=== PATIENT | female | born 1960 | race Caucasian/White ===

== ENCOUNTER 2019-03-31 17:56 | Inpatient (IN) | payer OTHER ==
[~2019-03-31] VITALS: Ht 162.6 cm; Wt 103.0 kg
--- NOTE | 2019-03-31 18:07 | NUR ---
DIARRHEA STARTED 2 WEEKS AGO BUT ABD PAIN STARTED LAST NIGHT. TODAY GEN ID LOWER QUADS 7/10 WITH DIARRHEA TODAY. ABD SOFT AND TENDER TO PALP WITHOUT PALP MASSES PRESENT. PT APPEARS PALE FOR ETHNICITY AND SKIN IS WARM AND DRY. PT CLAIMS GEN WEAKNESS STARTED SATURDAY. SENT HERE FROM [facility] FOR LOW BP. UPON ARRIVAL TRIAGE BP 81/40. PT CLAIMS SHE DID NOT TAKE HER BP MEDS TODAY. CONNECTED TO AUTOMATION TESTER AND AWAITING MD CARPENTER. DENIES ANY SYCOPAL EPISODE
--- NOTE | 2019-03-31 18:14 | NUR ---
UPON ASSESSMENT PT'S HAS JAUNDICE OF HER EYES
--- NOTE | 2019-03-31 18:14 | NUR ---
LAB AT BEDSIDE
[2019-03-31 18:42] LABS: BASOPHIL % 0.2 % (0-2)
[2019-03-31 18:44] LABS: PLATELET COUNT 124 x10^3mcL (130-400); RED CELL DISTRIBUTION WIDTH 15.2 % (11.5-14.5)
[2019-03-31 18:45] LABS: ALKALINE PHOSPHATASE 79 U/L (46-116); ALT/SGPT 42 U/L (14-59); AST/SGOT 156 U/L (15-37); BILIRUBIN TOTAL 5.2 mg/dL (0.20-1.00); CALCIUM 7.3 mg/dL (8.5-10.1); CARBON DIOXIDE 16.9 mmol/L (21-32); CHLORIDE SERUM 106 mmol/L (98-107); CREATININE SERUM 3.4 mg/dL (0.6-1.0); GFR1 15 mL/min; GLUCOSE SERUM 133 mg/dL (74-106); LIPASE 142 IU/L (73-393); SODIUM SERUM 136 mmol/L (136-145)
[2019-03-31 18:55] LABS: ALBUMIN 1.9 g/dL (3.4-5.0); POTASSIUM SERUM 5.9 mmol/L (3.5-5.1); TOTAL PROTEIN, SERUM 5.4 g/dL (6.4-8.2)
--- NOTE | 2019-03-31 18:55 | NUR ---
PT UNABLE TO GIVE ENOUGH URINE FOR URINE SEND. DR GODINEZ AWARE
--- NOTE | 2019-03-31 19:05 | NUR ---
BP 76/32. LEVOPHED STARTED PER PRROTOCOL AND DR GODINEZ ORDERS
--- NOTE | 2019-03-31 19:08 | NUR ---
LEVOPHED INCREASED TO 4MG/MIN FOR BP 79/37
--- NOTE | 2019-03-31 19:17 | NUR ---
LEVOPHED INCREASED TO 6MCG/,IN FOR BP 88/47
--- NOTE | 2019-03-31 19:48 | NUR ---
84/41 LEVO INCREASED FROM 9MCG TO 11MCG
--- NOTE | 2019-03-31 19:58 | NUR ---
98/39 LEVO INCREASED FROM 11MCG TO 13MCG
--- NOTE | 2019-03-31 20:19 | NUR ---
PT HAS MEDICATION RUNNING PER EMAR ORDERS. PT IS LAYING IN [place] POSITION AT THIS TIME. PT DENIES ANY PAIN. PT IS A/O X4. PT RESPS ARE E/U. NO ACD NOTED
--- NOTE | 2019-03-31 20:53 | NUR ---
PT TAKEN TO CT VIA ZULY POWELL BY TECH
--- NOTE | 2019-03-31 21:19 | NUR ---
PT BP HAS DROPPED TO 89/41 WILL INCREASE LEVO TO 15MCG/MIN
--- NOTE | 2019-03-31 21:29 | NUR ---
CRITICAL FINDING OF CT OF ABDOMEN. DR GODINEZ MADE AWARE
--- NOTE | 2019-03-31 21:57 | NUR ---
INCREASED THE LEVO TO 20MCG/MIN DUE TO BP BEING 103/35
--- NOTE | 2019-03-31 22:14 | NUR ---
95/31 INCREASED LEVO TO 22MCG/MIN
--- NOTE | 2019-03-31 22:40 | NUR ---
PT HAS MEDICATION RUNNING PER EMAR ORDERS. PT IS ANSWERING QUESTIONS APPROPRIATELY IN 5-8 WORDED SENTENCES. PT IS A/O X4. PT RESPS ARE E/U. PT HAS SPOUSE AT BEDSIDE. NO ACD NOTED
[2019-03-31 22:41] LABS: MAGNESIUM 1.7 mg/dL (1.8-2.4)
[2019-03-31 22:45] LABS: CHOLESTEROL/HDL RATIO 8.2
--- NOTE | 2019-03-31 22:50 | NUR ---
RECEIVED REPORT FROM REY ARIZA FROM ED. ALL QUESTIONS AND CONCERNS ADDRESSED.
--- NOTE | 2019-03-31 22:51 | NUR ---
PT REPORT GIVEN TO JACKIE IN ICU TO ASSUME PRIMARY CARE OF PT
--- NOTE | 2019-03-31 23:05 | NUR ---
PER DR. FAUST, ORDER 1 UNIT OF FFP.
--- NOTE | 2019-03-31 23:10 | NUR ---
PT WHEELED TO ICU BED 5 VIA ED ANDRE. PT ESCORTED BY SOFIA LE AND GRAY EMT. NO INCIDENCE NOTED
--- NOTE | 2019-03-31 23:13 | NUR ---
PT ARRIVED TO UNIT AT THIS TIME FROM ED. PT PLACED IN ICU 5. SOON PT ARRIVED PT WAS ABLE STAND AND PIVOT TO BEDSIDE COMMODE WITH MINIMAL ASSIST AND WAS ABLE TO URINATE WITHOUT COMPLICATIONS. PT THEN STOOD AND PIVOT TO HOSP WITH WITHOUT INCIDENT AND PLACED ON FULL DRYWALL APPLICATOR. PT IS A/O X4, SPEECH IS CLEAR AND FOLLOWS COMMANDS. EYES OPEN SPONTANEOULSY AND PUPILS REACT BRISK TO LIGHT. CHEST RISE AND FALL EQUAL AND UNLABORED. DENIES CHEST PAIN AND SOB AT THIS TIME. PT C/O LOWER ABD PAIN, 4/10 PRESSURE PAIN AT THIS TIME. PT HAS IV'S - 20, LT AC, PATENT AND FLUSHING WELL AND 22G TO RT HAND - INFILTRATED AND REMOVE. 20G IV STARTED IN RT AC, PATENT AND FLUSHING WELL. PT IS ON LEVOPHED 22MCG/MIN, VS STABLE AT THIS TIME. PT HAS NO COMPLAINTS OR SIGNS OR ACUTE DISTRESS AT THIS TIME. BED LEFT IN THE LOWEST POSITION AND CALL LIGHT LEFT WITH REACH.
--- NOTE | 2019-03-31 23:36 | NUR ---
TITRATED LEVOPHED FROM 22 MCG/MIN TO 20 MCG/MIN FOR BP OF 122/63 (96).
--- NOTE | 2019-03-31 23:51 | NUR ---
TITRATED LEVOPHED FROM 20 MCG/MIN TO 18 MCG/MIN FOR BP OF 117/65 (70).
--- NOTE | 2019-03-31 23:56 | NUR ---
RECEIVED REPORT FROM REY ARIZA FROM ED. ALL QUESTIONS AND CONCERNS ADDRESSED.
[2019-04-01] VITALS (8 sets, daily range): BP systolic 86–115; BP diastolic 47–86; Ht 162.6 cm; Wt 103.0 kg
--- NOTE | 2019-04-01 00:15 | NUR ---
TITRATED LEVOPHED FROM 18 MCG/MIN TO 16 MCG/MIN FOR BP WITHIN NORMAL LIMITS.
--- NOTE | 2019-04-01 00:25 | NUR ---
DR. FAUST CALLED, AND WOULD LIKE TO ORDER D5 1/2 NS TO INFUSE PATIENTS MAINTENANCE FLUIDS, AND DC NS. ALSO STATED THAT IF PT'S BP IS NOT STABLE, THEN PROVIDE WITH SECOND BAG OF FFP.
--- NOTE | 2019-04-01 01:01 | NUR ---
PT'S BLOOD TESTED BODIES FOR ANTIBODIES, THEREFORE PATIENT CANNOT RECEIVE FFP. WILL LET DOCTOR KNOW.
--- NOTE | 2019-04-01 01:26 | NUR ---
NEOSYNPHRINE START AT THIS AT 50MCG/MIN, BP 95/48 AND MAP 70
--- NOTE | 2019-04-01 01:49 | NUR ---
DR. TREJO AND INTERNS AT BEDSIDE FOR CENTRAL LINE PLACEMENT. TIME OUT AND CONSENT FORM SIGNED AND PLACED IN CHART.
--- NOTE | 2019-04-01 01:51 | NUR ---
TIME OUT TAKEN AT 0150 FOR CENTRAL LINE INSERTION, RT VS LT IJ. DR TREJO AT BEDSIDE WITH 3 OTHER RESIDENT FOR PROCEDURE.
--- NOTE | 2019-04-01 02:28 | NUR ---
SEPTIC TANK SETTER AT BEDSIDE TO ASSIST WITH CENTRAL LINE PLACEMENT.
--- NOTE | 2019-04-01 02:30 | NUR ---
ATTEMPTED TO CALL DR. FAUST, CALL DIDNT GO THROUGH, WILL TRY AGAIN.
--- NOTE | 2019-04-01 02:53 | NUR ---
CENTRAL LINE INSERTION PROCEDURE FINISHED AT THIS TIME, XRAY NOTIFIED FOR CXR FOR CONFIRMATION OF PLACEMENT
--- NOTE | 2019-04-01 03:01 | NUR ---
XRAY AT BEDSIDE FOR CXR FOR CENTRAL LINE PLACEMENT CONFIRMATION.
[2019-04-01 03:19] LABS: BASOPHIL % 1.1 % (0-2); PLATELET COUNT 152 x10^3mcL (130-400)
[2019-04-01 03:20] LABS: RED CELL DISTRIBUTION WIDTH 15.5 % (11.5-14.5)
[2019-04-01 03:57] LABS: CALCIUM 7.3 mg/dL (8.5-10.1); CARBON DIOXIDE 18.7 mmol/L (21-32); MAGNESIUM 1.6 mg/dL (1.8-2.4); PHOSPHOROUS 2.5 mg/dL (2.5-4.9); POTASSIUM SERUM 4.9 mmol/L (3.5-5.1)
--- NOTE | 2019-04-01 04:21 | NUR ---
LEVOPHED TITRATED DOWN FROM 16MCG/MIN TO 14MCG/MIN, BP 123/86.
--- NOTE | 2019-04-01 05:27 | NUR ---
NEOSYNPHRINE TITRATED UP FROM 50MCG/MIN TO 75MCG/MIN, BP 86/33
--- NOTE | 2019-04-01 05:42 | NUR ---
RESIDENT AT BEDSIDE, UPDATE GIVEN.
--- NOTE | 2019-04-01 05:48 | NUR ---
BP 86/63, LEVOPHED TITRATED UP FROM 14MCG/MIN TO 16MCG/MIN AND NEOSYNPHRINE TITRATED UP FROM 75MCG/MIN TO 100MCG/MIN
--- NOTE | 2019-04-01 05:57 | NUR ---
DR. FAUST CALLED, DOCTOR ORDERED ALBUMIN 25%, 100 ML NOW. WILL CARRY OUT ORDER. MADE AWARE OF NOT BEING ABLE TO PROVIDE FFP.
--- NOTE | 2019-04-01 06:18 | NUR ---
DR. FAUST CALLED TO ORDER ONE UNIT OF PRBC. CALLED LAB TO SEE IF IT WERE POSSIBLE TO GIVE BLOOD, AND NURSING AIDE STATED THAT THE BLOOD WAS SENT OUT FOR TYPE AND SCREEN DUE TO THE PRESENCE OF ANTIBODIES. WILL MAKE DOCTOR FAUST AWARE.
--- NOTE | 2019-04-01 07:49 | NUR ---
BP 115/54 (75). LEVOPHED TITRATED FROM 16 MCG/MINT TO 14 MCG/MIN
[2019-04-01 07:51] LABS: BILIRUBIN DIRECT 3.12 mg/dL (0.0-0.2); BILIRUBIN TOTAL 5.3 mg/dL (0.20-1.00)
[2019-04-01 07:52] LABS: TOTAL PROTEIN, SERUM 5.7 g/dL (6.4-8.2)
--- NOTE | 2019-04-01 08:38 | NUR ---
103/47 (70). LEVOPHED TITRATED FROM 14 MCG/MIN TO 12 MCG/MIN
--- NOTE | 2019-04-01 09:00 | NUR ---
WHITE WASHER PILER EMRE AT BEDSIDE FOR ECHO
--- NOTE | 2019-04-01 09:15 | NUR ---
RIGHT AC PIV REMOVED DT LEAK AND DISCOMFORT. IVF MOVED TO RIJ BROWN LUMEN.
--- NOTE | 2019-04-01 09:20 | NUR ---
BP 114/57 (78). LEVOPHED TITRATED FROM 12 MCG/MIN TO 10 MCG/MIN
--- NOTE | 2019-04-01 09:49 | NUR ---
NIBP 84/35 MAP 58, NEOSYN TITRATED TO 100 MCG/MIN. PRIMARY RN MADE AWARE.
--- NOTE | 2019-04-01 10:09 | NUR ---
US TECH AT BEDSIDE FOR ABDOMINAL US
--- NOTE | 2019-04-01 10:30 | NUR ---
DR. CAGE, RESIDENTS, SCHOOL BUS AIDE AND PRIMARY RN AT BEDSIDE TO SEE AND ASSESS PT. PT AND PT'S AT BEDSIDE. UPDATES PROVIDED BY PHYSICIANS. WILL CONT TO MONITOR.
--- NOTE | 2019-04-01 10:30 | NUR ---
DR. CAGE ROUNDED ON THE PT, AND THE PT AND HER AT BEDSIDE WERE UPDATED ON THE PLAN OF CARE. DISCUSSED POSSIBLE TRANSFER TO HIGHER LEVEL OF CARE.
--- NOTE | 2019-04-01 10:32 | NUR ---
BP 100/59 (74). LEVOPHED TITRATED FROM 10 MCG/MIN TO 8 MCG/MIN
[2019-04-01 11:00] LABS: BASOPHIL % 0.6 % (0-2); CALCIUM 7.5 mg/dL (8.5-10.1); CARBON DIOXIDE 21.2 mmol/L (21-32); CREATININE SERUM 2.6 mg/dL (0.6-1.0); PLATELET COUNT 134 x10^3mcL (130-400); POTASSIUM SERUM 4.2 mmol/L (3.5-5.1)
--- NOTE | 2019-04-01 11:05 | NUR ---
SPOKE WITH DR. RODGERS. INFORMED OF TYPE/SCREEN RESULTS, HGB LEVELS, AND ASKED REGARDING WHETHER FFP SHOULD BE HUNG NOW. STATES TO HANG FFP.
[2019-04-01 11:07] LABS: RED CELL DISTRIBUTION WIDTH 15.3 % (11.5-14.5)
--- NOTE | 2019-04-01 11:23 | NUR ---
BP 89/47 (60). LEVOPHED TITRATED FROM 8 MCG/MIN TO 10 MCG/MIN
--- NOTE | 2019-04-01 11:31 | NUR ---
ABDOMINAL US COMPLETED
[2019-04-01 12:28] LABS: UA SPECIFIC GRAVITY <=1.005 (1.005-1.035); microscopic required? YES; urine erythrocyte 3+ (NEGATIVE)
[2019-04-01 12:32] LABS: AMPHETAMINE QUAL UR NONE DETECTED (See below)
--- NOTE | 2019-04-01 12:51 | NUR ---
DR. LUO AT BEDSIDE TO ASSESS PT. UPDATED ON LABS AND RECENT VS. PER DR. ULO ATTEMPTED TO KEEP PRESSORS LOW POSSIBLE. DIC PANEL TO BE ORDERED AND CONFIRMED. ALSO ASKS THAT 2 UNITS PRBC BE GIVEN AND TO KEEP 2 UNITS PRBC ON BOARD FOR POSSIBLE SURGERY
--- NOTE | 2019-04-01 12:55 | NUR ---
PER OG, DIRECTOR OF RESTAURANTS, [facility] WILL NOT ACCEPT PT PATIENT IS ON 2 VASOPRESSORS AT THIS TIME AND IS CONSIDERED TOO UNSTABLE FOR TRANSFER
--- NOTE | 2019-04-01 12:57 | NUR ---
TANYA STEAM TENDER ON UNIT. UPDATED ON PT'S STATUS. INFORMED THAT WE WILL NOTIFY WHEN BLOOD TRANSFUSION IS AVAILABLE. INFORMED OF PT NOT TRANSFERRING TO [place] AT THIS TIME. VERBALIZES UNDERSTANDING
--- NOTE | 2019-04-01 13:01 | NUR ---
BP 85/41 (59). NEOSYNEPHRINE TITRATED FROM 125 MCG/MIN TO 200 MCG/MIN
--- NOTE | 2019-04-01 13:17 | NUR ---
DR. HUERTA'S NUMBER GIVEN TO LAB TO DISCUSS BLOOD TRANSFUSION AND ANTIBODIES.
--- NOTE | 2019-04-01 13:19 | NUR ---
SPOKE WITH DR. FAUST. ASKS TO BE NOTIFIED WHEN BLOOD IS AVAILABLE FOR PT.
--- NOTE | 2019-04-01 13:20 | NUR ---
1 UNIT FFP VERIFIED AT BEDSIDE WITH SECOND RN. PRE ADMINISTRATION VS: TEMP 98.0, PULSE 107, BP 85/41, RR 22, SPO2 94%. WILL REASSESS IN 15 MINUTES FOR ANY ADVERSE REACTIONS.
--- NOTE | 2019-04-01 13:35 | NUR ---
15 MINUTE REASSESSMENT OF FFP TRANSFUSION VS: TEMP 97.8, HR 104, BP 95/67, SPO2 94%. NO ADVERSE REACTION OR DISTRESS NOTED AT THIS TIME. PATIENT TOLERATING WELL. WILL CONTINUE TO MONITOR.
--- NOTE | 2019-04-01 13:38 | NUR ---
CASE MANAGEMENT: PER OG [place] AUTHORIZED PT'S STAY FOR TODAY. HOWEVER THEY WOULD LIKE TO BE GIVEN UPDATES DAILY AND WILL HAVE PT TRANSFERRED TO [place] SOON SHE IS STABLE. [place] CONTACT PHONE NUMBER DOCUMENTED IN CASE MANAGEMENT NOTES FOR NURSING STAFF TO CALL IF CASE MANAGEMENT IS CLOSED.
--- NOTE | 2019-04-01 13:44 | NUR ---
CUSTOMER SUPPORT MANAGER'S ON UNIT. QUESTIONS REGARDING IF TWO UNITS PRBC TO BE INFUSED PRIOR TO SURGERY. INFORMED THAT WE WILL CALL DR. RODGERS AND CLARIFY ORDER.
--- NOTE | 2019-04-01 13:46 | NUR ---
SPOKE WITH DR. RODGERS TO CLARIFY IF THE TWO UNITS OF PRBC ARE REQUIRED TO BE TRANSFUSED PRIOR TO SURGERY. PER DR. RODGERS TWO UNITS OF PRBC ARE NOT REQUIRED TO BE TRANSFUSED PRIOR TO SURGERY LONG THEY ARE AVAILABLE FOR THE SURGERY. PRIMARY RN AWARE AND WILL NOTIFY SURGERY TEAM WELL.
--- NOTE | 2019-04-01 13:50 | NUR ---
TANYA MINERAL ORE PROCESSING LABOURER, INFORMED OF PT AVAILABLE FOR SURGERY WHEN BLOOD PRODUCTS ARE AVAILABLE.
--- NOTE | 2019-04-01 13:55 | NUR ---
NOREPI TITRATED TO 14 MCG/MIN, MAP 59
--- NOTE | 2019-04-01 14:18 | NUR ---
BP 120/53 (73). LEVOPHED TITRATED FROM 14 MCG/MIN TO 12 MCG/MIN
--- NOTE | 2019-04-01 14:30 | NUR ---
SPOKE WITH ALYCE ACCOUNTS RECEIVABLE SPECIALIST. STATES PER DR. LLOYD TITRATED NEOSYNEPHRINE OFF. ALSO TO INFUSE ONE UNIT FFP A BOLUS AND THEN HAVE CBC CMP PT/PTT DRAWN AFTER
--- NOTE | 2019-04-01 14:36 | NUR ---
109/44(74). NEOSYNEPHRINE TITRATED FROM 150 MCG/MIN TO 100 MCG/MIN. LEVOPHED @ 14 MCG/MIN.
--- NOTE | 2019-04-01 14:48 | NUR ---
BP 107/49 (67) LEVOPHED TITRATED FROM 14 MCG/MIN TO 16 MCG/MIN AND NEOSYNEPHRINE TITRATED FROM 100 MCG/MIN TO 25 MCG/MIN
--- NOTE | 2019-04-01 14:55 | NUR ---
FFP FIRST UNIT FINISHED AT THIS TIME. TEMP 98.1, PULSE 113, BP 107/48. RR 21 AMD 94% SPO2. NO S/SX OF ADVERSE REACTION
--- NOTE | 2019-04-01 14:55 | NUR ---
PER DR. LLOYD. CBC/BMP NOW. COAGULATION PANELS WILL BE DRAWN IN THE OPERATIVE ROOM. MAMADOU CLINIC DIRECTOR, MADE AWARE
--- NOTE | 2019-04-01 15:02 | NUR ---
86/39 (57) LEVOPHED TITRATED FROM 16 MCG/MIN TO 18 MCG/MIN
[2019-04-01 15:14] LABS: BASOPHIL % 0.1 % (0-2)
--- NOTE | 2019-04-01 15:15 | NUR ---
OBTAINED SIGNED CONSENT FOR EXP-LAP FROM PT WHO IS A/O X4 AT THIS TIME. OFFERED IF SHE FELT COMFORTABLE SIGNING NOW OR IF SHE HAD ANY FURTHER QUESTIONS FOR THE SURGEON PRIOR TO SIGNING CONSENT. PT STATED SHE HAD NO FURTHER QUESTIONS AT THIS TIME. SIGNED CONSENT WITNESSED BY MYSELF AND PLACED IN CHART.
[2019-04-01 15:16] LABS: PLATELET COUNT 128 x10^3mcL (130-400); RED CELL DISTRIBUTION WIDTH 15.4 % (11.5-14.5)
--- NOTE | 2019-04-01 15:16 | NUR ---
DR. VASQUES AT BEDSIDE SPEAKING WITH PT. UPDATED ON PT'S STATUS AND CONDITION. PER DR. VASQUES CHANGE LACTATED RINGER 250 ML/HR TO NS 150 ML/HR. INFORMED OF CRITICAL HGB 5.5 AND HCT 15.4
--- NOTE | 2019-04-01 15:17 | NUR ---
[place] SUPERINTENDENT OF SCHOOLS, MADE AWARE OF HGB 5.5 AND HCT 15.4. STATES SHE WILL INFORM DR. LLOYD
[2019-04-01 15:22] LABS: CALCIUM 7.4 mg/dL (8.5-10.1); CARBON DIOXIDE 18.7 mmol/L (21-32); CREATININE SERUM 2.2 mg/dL (0.6-1.0); POTASSIUM SERUM 4.1 mmol/L (3.5-5.1)
[2019-04-01 15:30] LABS: rbc morphology (normal/abnorm) ABNORMAL (NORMAL)
--- NOTE | 2019-04-01 15:32 | NUR ---
SPOKE WITH DR. LLOYD REGARDING PRBC UNIT BEING AVAILABLE. PER DR. LLOYD BOLUS PRBC PRIOR TO FFP ADMINISTRATION. FFP WILL BE 20 MINUTES UNTIL READY.
--- NOTE | 2019-04-01 15:35 | NUR ---
SPOKE WITH DR. HUERTA REGARDING BLOOD ADMINISTRATION. STATES PT DOES NOT NEED A STEROID PRIOR TO BLOOD ADMINISTRATION.
--- NOTE | 2019-04-01 15:45 | NUR ---
TITRATED NEOSYNEPHRINE DOWN TO 25 MCG/MIN FROM 50 MCG/MIN. BP 101/52 (71).
--- NOTE | 2019-04-01 15:50 | NUR ---
PT CLEANED WITH CHG WIPES PRIOR TO SURGERY.
--- NOTE | 2019-04-01 15:59 | NUR ---
1 UNIT OF PRBC'S VERIFIED AT BEDSIDE WITH SECOND RN. PRE-ADMINISTRATION VS: T 99.1, HR 107, BP 101/52, RR 25, SPO2 92%. WILL REASSESS IN 15 MIN FOR S/S OF ADVERSE REACTION.
--- NOTE | 2019-04-01 16:12 | NUR ---
15 MINUTE REASSESSMENT OF PRBC TRANSFUSION VS: T 99.0, HR 110, BP 95/40, RR 23, SPO2 93%. NO ADVERSE REACTION OR DISTRESS NOTED AT THIS TIME. PT TOLERATING TRANSFUSION WELL. WILL CONTINUE TO MONITOR
--- NOTE | 2019-04-01 16:26 | NUR ---
'S CELL PHONE NUMBER , CLAUS SHAFER.
--- NOTE | 2019-04-01 16:40 | NUR ---
BP 109/56 (74). NEOSYNEPHRINE TITRATED FROM 25 MCG/MIN TO OFF AT THIS TIME. LEVOPHED REMAINS @ 18 MCG/MIN
--- NOTE | 2019-04-01 16:45 | NUR ---
1 UNIT FFP INITIATED AT THIS TIME. PER DR. LLOYD BOLUS AT 1000 ML/HR. PRE VS: TEMP 98.3, HR 93, BP 109/56, RR 23, AND PO2 95% ON 2L NC.
--- NOTE | 2019-04-01 16:47 | NUR ---
BP 113/71 (82). LEVOPHED TITRATED FROM 18 MCG/MIN TO 16 MCG/MIN
--- NOTE | 2019-04-01 17:07 | NUR ---
PT TAKEN TO OR AT THIS TIME ACCOMPANIED BY RNS AND INTERNAL MEDICINE NURSE. ATTACHED TO EDUCATIONAL FUNDRAISING DIRECTOR. FFP BOLUS INFUSING, SENT WITH BLOOD TRANSFUSION SHEET. LEVOPHED PACKET AND 1700 ZOSYN SENT WITH PT. LEVOPHED @ 16 MCG/MIN. NS INFUSING @ 125 ML/HR, CALCIUM GLUCONATE INFUSING @ 120 ML/HR. PT'S AT BEDSIDE TO WALK WITH PT TO OR.
--- NOTE | 2019-04-01 18:15 | NUR ---
DR. NUNES ON UNIT. INFORMED THAT PATIENT IS IN OPERATING ROOM. UPDATES PROVIDED
--- NOTE | 2019-04-01 20:50 | NUR ---
PT ARRIVED FROM OR ACCOPMANIED BY DR. LLOYD, AND MACHINE PRESSER'S AND RECEVIED REPORT AT BEDSIDE, PER DR. LLOYD PT HAD A SPLENECTOMY AND 2L BLOOD LOSS, GIVEN FENTANYL AND VERSED IVP FOR SEDATION, 1500 ML OF CRYSTALLOID AND 500 OF COLLOID, -150 URINE OUTPUT, GIVEN 2 UNITS OF PRBC, 1 UNIT FFP AND 1 UNIT PLATELET. PT ATTACHED TO FULL PRESCHOOL DIRECTOR AND CONTINUOUS PULSE OXIMETRY AND ATTACHED TO VENT BY SHAVONNE HIGHTOWER. RECEIVED PT INTUBATED NOT SEDATED FROM OR, UNABLE TO FOLLOW SIMPLE COMMANDS, OR MAKE NEEDS KNOWN. PT DROWSY FROM SEDATION MEDICATIONS FROM OR, RSS=5. PUPILS 2MM SLUGGISH RESPONSE TO LIGHT B/L, PERRLA. GAG REFLEX PRESENT WHEN SUCTIONED. NO FACIAL DROOP. PT INTUBATED TO VENT, INTACT. RIJ, TLC, CDI, PORTS PATENT X3 AND INFUSING. RIGHT NARE NGT INTACT/PATENT, ATTACHED TO LOW INTERMITTENT SUCTION PER DR. FAUST. TRACHEA MIDLINE, NO DRAINAGE TO EENT. 7.5 ETT, 21 LL. ORAL CARE PROVIDED PER VAP PROTOCOL. VENT SETTINGS VCV-AC MODE, FIO2 100%, RATE 10, VT 500, PEEP 5. LUNG SOUNDS CLEAR TO BUL, DIMINISHED BASES. CHEST RISE/FALL SYMMETRIC, E/U BREATHING, NO ACUTE DISTRESS.S1/S2 SOUNDS, CHEST WALL STABLE, NO S/S OF CHEST PAIN. SKIN COLOR APPEARS SLIGHTLY JAUNDICED, CAP REFILL <3 SEC, PULSES WEAK TO BUE/BLE BUT PALPABLE, NO EDEMA. ARTERIAL LINE TO RIGHT RADIAL ARTERY, CDI. NEOSYNEPHRINE GTT INFUSING @ 30 MCG/MIN FROM OR, FOR BP SUPPORT. GEN WEAKNESS, NO CONTRACTURES/DEFORMITIES, PT ON TURN SCHED Q2H. SOFT WRIST RESTRAINTS TO BUE, SKIN/PULSE WNL FOR PT SAFETY. NO JOINT SWELLING OR TENDERNESS. PT NPO. RIGHT NARE NGT TO LOW INTERMITTENT SUCTION. NO S/S OF N/V.HYPOACTIVE BOWEL SOUNDS X4 QUADRANTS, ABD ROUND. NO BM NOTED. MID ABD INCISION S/P EXP LAP FROM OR WITH SUTURES/LIZZIE INTACT AND DRESSING CDI, ABD BINDER INTACT. ALESHA DRAIN TO LEFT ABD, DRESSING AND SITE WNL, DRAINING SANGOUNOUS RED BLOOD.F/C DRAINING TO GRAVITY INTACT, REY URINE. NO VAGINAL DISCHARGE OR EDEMA NOTED.SKIN WARM/DRY TO TOUCH. BED AT LOWEST SETTING, HOB ELEVATED 30 DEGREES, WILL CONT TO MONITOR.
--- NOTE | 2019-04-01 21:05 | NUR ---
DR. VILLASENOR AT BEDSIDE ASSESSING PT, UPDATES PROVIDED.
--- NOTE | 2019-04-01 21:06 | NUR ---
FENTANYL GTT INITIATED AT THIS TIME @ 1 MCG/KG/HR TO ACHEIVE RSS=4. PT RSS=1.
--- NOTE | 2019-04-01 21:07 | NUR ---
VERSED GTT INITATED AT THIS TIME @ 1 MG/HR TO ACHEIVE RSS=4. RSS=1 AT THIS TIME.
--- NOTE | 2019-04-01 21:20 | NUR ---
DR. TREJO MADE AWARE OF PTS H/H OF 5.2/14. PER DR. TREJO AND DR. VILLASENOR MADE AWARE, OK TO INFUSING PRBC.
--- NOTE | 2019-04-01 21:33 | NUR ---
NEOSYNEPHRINE GTT INITIATED @ 50 MCG/MIN, ARTERIAL LINE MAP=60.
[2019-04-01 21:35] LABS: PLATELET COUNT 141 x10^3mcL (130-400)
[2019-04-01 21:36] LABS: RED CELL DISTRIBUTION WIDTH 22.1 % (11.5-14.5)
--- NOTE | 2019-04-01 21:40 | NUR ---
FENTANYL GTT TITRATED TO 1.5 MCG/KG/HR AND VERSED TITRATED TO 2 MG/HR TO ACHIEVE RSS=4. RSS= 1.
[2019-04-01 21:44] LABS: CALCIUM 6.6 mg/dL (8.5-10.1); CARBON DIOXIDE 19.5 mmol/L (21-32); CHLORIDE SERUM 107 mmol/L (98-107); GFR1 27 mL/min; GLUCOSE SERUM 253 mg/dL (74-106); POTASSIUM SERUM 4.3 mmol/L (3.5-5.1); SODIUM SERUM 138 mmol/L (136-145)
[2019-04-01 21:49] LABS: ALKALINE PHOSPHATASE 47 U/L (46-116); ALT/SGPT 46 U/L (14-59); AST/SGOT 173 U/L (15-37); BAND NEUTROPHIL 7 % (0-10); MONOCYTE 3 % (0-7); PROMYELOCYTE 2 % (0-0); SEGMENTED NEUTROPHILS 68 % (37-75)
[2019-04-01 21:50] LABS: rbc morphology (normal/abnorm) ABNORMAL (NORMAL)
[2019-04-01 21:51] LABS: ALBUMIN 2.6 g/dL (3.4-5.0); PLATELET MORPHOLOGY PLATELETS DECREASED; TOTAL PROTEIN, SERUM 4.7 g/dL (6.4-8.2)
--- NOTE | 2019-04-01 21:57 | NUR ---
1 UNIT PRBC VERIFIED AT BEDSIDE WITH 2 RN'S. PRE VITAL SIGNS, TEMP 97.9, PULSE 136, ART BP 94/46, RESP 14, O2 100%.
--- NOTE | 2019-04-01 22:00 | NUR ---
NEOSYNEPRHINE GTT TITRATED TO 75 MCG/MIN, ARTERIAL LINE MAP=59.
--- NOTE | 2019-04-01 22:08 | NUR ---
VASOPRESSIN GTT INTITATED @ 0.01 UNITS/MIN, ARTERIAL LINE MAP=63.
--- NOTE | 2019-04-01 22:10 | NUR ---
VERSED GTT TITRATED TO 4 MG/HR, RSS=1.
--- NOTE | 2019-04-01 22:13 | NUR ---
15 MIN REASSESSMENT OF PRBC TRANSFUSION VS: TEMP 98.5, PULSE 134, ART BP 107.47, RESP 12, O2 100%. NO AVERSE REACTION NOTED TO PT.
--- NOTE | 2019-04-01 22:26 | NUR ---
DR FAUST CALLED BACK, CLARIFIED TPN ORDER TO START INFUSION AT 70ML/HR, CHANGE IVF D5 1/2 NS AT 10ML/HR WHEN TPN STARTS. DR FAUST MADE AWARE TPN WILL NOT BE AVAILABLE TILL TOMORROW NIGHT PER PHARMACIST. PHARMACIST CALLED AND MADE AWARE.
--- NOTE | 2019-04-01 22:30 | NUR ---
NEOSYNEPRHINE GTT TITRATED TO 100 MCG/MIN, ARTERIAL LINE MAP=62.
--- NOTE | 2019-04-01 22:47 | NUR ---
D5 1/2 NS AND NS D/C AT THIS TIME PER DR. TREJO AND ORDER
--- NOTE | 2019-04-01 23:00 | NUR ---
NEOSYNEPRHINE GTT TITRATED TO 125 MCG/MIN, ARTERIAL LINE MAP=63.
--- NOTE | 2019-04-01 23:15 | NUR ---
VASOPRESSIN GTT INTITATED @ 0.02 UNITS/MIN, ARTERIAL LINE MAP=60.
[2019-04-02] VITALS (16 sets, daily range): BP systolic 80–102; BP diastolic 47–61
--- NOTE | 2019-04-02 00:10 | NUR ---
UNIT OF PRBC FINISHED AT THIS TIME, TEMP 98.5, PULSE 127, ART BP 90/45, RESP 13, O2 100%. PT SHOWS NO S/S OF ANY ADVERSE BLOOD TRANFUSION REACTION.
--- NOTE | 2019-04-02 00:15 | NUR ---
DR. ARAIZA AT BEDSIDE FOR ASSESSMENT, UPDATES PROVIDED ABOUT PT. PER DR. ARAIZA, D/C FLAGYL AND ORDER PNEUMOVAXX VACCINE FOR AM PT HAD A SPLECTOMY, AND CONTINUE ZOSYN. PER DR. ARAIZA HE NEEDS MORE INFORMATION ABOUT PT AND WILL CONTACT . WILL INPUT ORDERS.
--- NOTE | 2019-04-02 00:20 | NUR ---
SPOKE WITH DR. VILLASENOR OF PT'S BLOOD INFUSION FINISHED AT THIS TIME. PER DR. VILLASENOR OK TO DRAW CBC/LACTIC ACID AT THIS TIME (WILL INFORM LAB), AND WILL WAIT ON RESULTS TO INFUSE NEXT BLOOD TRANSFUSION.
--- NOTE | 2019-04-02 00:30 | NUR ---
FENTANYL TITRATED TO 1 MCG/KG/HR, RSS=5.
--- NOTE | 2019-04-02 00:30 | NUR ---
LEVOPHED GTT TITRATED TO 28 MCG/MIN, ART LINE MAP=70.
--- NOTE | 2019-04-02 00:40 | NUR ---
LEVOPHED GTT TITRATED TO 26 MCG/MIN, ART LINE MAP=66.
[2019-04-02 00:44] LABS: BASOPHIL % 0.1 % (0-2)
--- NOTE | 2019-04-02 00:45 | NUR ---
VERSED TITRATED TO 2 MG/HR, RSS=5.
--- NOTE | 2019-04-02 00:45 | NUR ---
NEOSYNEPRHINE GTT TITRATED TO 150 MCG/MIN, ARTERIAL LINE MAP=62
[2019-04-02 01:09] LABS: PLATELET COUNT 122 x10^3mcL (130-400)
--- NOTE | 2019-04-02 01:10 | NUR ---
CRITICAL LAB VALUE H/H 6.6/19, AND LACTIC OF 5.0 DR. VILLASENOR MADE AWARE VIA TELEPHONE. PER DR. VILLASENOR SHE WILL ORDER ANOTHER UNIT OF PRBC.
[2019-04-02 01:11] LABS: rbc morphology (normal/abnorm) ABNORMAL (NORMAL)
--- NOTE | 2019-04-02 01:30 | NUR ---
NEOSYNEPRHINE GTT TITRATED TO 175 MCG/MIN, ARTERIAL LINE MAP=63
[2019-04-02 02:24] LABS: rbc morphology (normal/abnorm) ABNORMAL (NORMAL)
--- NOTE | 2019-04-02 02:55 | NUR ---
1 UNIT OF PRBC VERIFIED AT BEDSIDE WITH 2 RN'S. PRE VITAL SIGNS, TEMP 99.0, PULSE 125, ART BP 97/57, RESP 12, O2 100%.
--- NOTE | 2019-04-02 03:10 | NUR ---
15 MIN REASSESSMENT OF PRBC TRANSFUSION VS: TEMP 99.2, PULSE 125, ART BP 95/52, RESP 12, O2 100%. NO AVERSE REACTION NOTED TO PT, TITRATED BLOOD TRANSFUSION PER HOSPITAL PROTOCOL
--- NOTE | 2019-04-02 03:15 | NUR ---
LEVOPHED TITRATED TO 24 MCG/MIN, ART MAP=71.
--- NOTE | 2019-04-02 03:30 | NUR ---
LEVOPHED TITRATED TO 22 MCG/MIN, ART LINE MAP=71.
--- NOTE | 2019-04-02 03:37 | NUR ---
SPOKE WITH DR. FAUST ON PT'S STATUS, VASOPRESSORS, VITAL SIGNS, AND LAB VALUES. NO NEW ORDERS AT THIS TIME.
--- NOTE | 2019-04-02 03:45 | NUR ---
LEVOPHED TITRATED TO 20 MCG/MIN, ART LINE MAP=71.
--- NOTE | 2019-04-02 04:00 | NUR ---
LEVOPHED TITRATED TO 18 MCG/MIN, ART LINE MAP=70.
--- NOTE | 2019-04-02 04:15 | NUR ---
LEVOPHED TITRATED TO 16 MCG/MIN, ART LINE MAP=70.
--- NOTE | 2019-04-02 04:30 | NUR ---
LEVOPHED TITRATED TO 14 MCG/MIN, ART LINE MAP=69.
--- NOTE | 2019-04-02 04:35 | NUR ---
NEOSYNEPRHINE GTT TITRATED TO 150 MCG/MIN, ARTERIAL LINE MAP=71
--- NOTE | 2019-04-02 04:45 | NUR ---
LEVOPHED TITRATED TO 12 MCG/MIN, ART LINE MAP=70.
--- NOTE | 2019-04-02 05:00 | NUR ---
LEVOPHED TITRATED TO 10 MCG/MIN, ART LINE MAP=69.
--- NOTE | 2019-04-02 05:06 | NUR ---
DR. VILLASENOR AT BEDSIDE TO ASSESS PT, UPDATES PROVIDED. INFORMED HER OF PTS RIGHT NGT DRAINING BROWN LIQUID. NO NEW ORDERS AT THIS TIME.
--- NOTE | 2019-04-02 05:20 | NUR ---
UNIT OF PRBC FINISHED AT THIS TIME, TEMP 98.8, PULSE 114, ART BP 86/54, RESP 12, O2 100%. PT SHOWS NO S/S OF ANY ADVERSE BLOOD TRANFUSION REACTION.
--- NOTE | 2019-04-02 05:21 | NUR ---
DR. VILLASENOR MADE AWARE OF PT'S BLOOD TRANSFUSION FINISHED. INFORMED HER OF NO CBC ORDERED FOR AM LAB, PER DR. VILLASENOR SHE WILL ORDER A CBC.
--- NOTE | 2019-04-02 06:00 | NUR ---
LEVOPHED TITRATED TO 8 MCG/MIN, ART LINE MAP=71.
[2019-04-02 06:02] LABS: BASOPHIL % 0 % (0-2); PLATELET COUNT 118 x10^3mcL (130-400); RED CELL DISTRIBUTION WIDTH 18.6 % (11.5-14.5)
--- NOTE | 2019-04-02 06:06 | NUR ---
GAS CONTROLLER AT BEDSIDE FOR CHEST XRAY.
[2019-04-02 06:12] LABS: ALBUMIN 2.2 g/dL (3.4-5.0); BILIRUBIN TOTAL 5.44 mg/dL (0.20-1.00); CALCIUM 6.4 mg/dL (8.5-10.1); CARBON DIOXIDE 14.8 mmol/L (21-32); CREATININE SERUM 2.6 mg/dL (0.6-1.0); MAGNESIUM 1.3 mg/dL (1.8-2.4); PHOSPHOROUS 3.4 mg/dL (2.5-4.9); POTASSIUM SERUM 4.3 mmol/L (3.5-5.1); TOTAL PROTEIN, SERUM 4.6 g/dL (6.4-8.2)
--- NOTE | 2019-04-02 06:26 | NUR ---
DR. RODGERS MADE AWARE OF PT'S LACTIC ACID OF 5.4 AND WBC 17.0. NO NEW ORDERS AT THIS TIME.
--- NOTE | 2019-04-02 06:30 | NUR ---
NEOSYNEPRHINE GTT TITRATED TO 125 MCG/MIN, ARTERIAL LINE MAP=71.
--- NOTE | 2019-04-02 07:00 | NUR ---
RESTRAINTS REMOVED AT THIS TIME. RSS 5. SEDATED AND CALM
--- NOTE | 2019-04-02 07:00 | NUR ---
GAVE REPORT TO REY TORREZ. UPDATES GIVEN, QUESTIONS ANSWERED.
--- NOTE | 2019-04-02 07:01 | NUR ---
RECEIVED REPORT FROM ROSITA LE. PT LYING IN SEMIFOWLERS POSITION SEDATED ON VERSED @ 2 MG/HR AND FENTANYL @ 1 MCG/KG/HR. RSS 5. DOES NOT FOLLOW COMMANDS, DOES NOT OPEN EYES SPONT. NO FACIAL DROOP. ETT 7.0 AND 22 @ LL SECURED TO VENT VCV AC MODE SETTINGS: VT 500, RR 10 PEEP 5 AND FIO2 80%. CHEST EXPANSION SYMM, BREATHING EVEN/LABORED. ABD ROUND, SOFT WITH ABDOMINAL BINDER. LEFT ALESHA DRAIN WITH SANGUINOUS DRAINAGE APPX 20 ML. RIGHT NGT ATTACHED TO LIS WITH DARK RED OUTPUT. CM IN PLACE. SINUS TACHYCARDIA ON MONITOR. RIJ TLC CVC SITE WNL AND DRESSING CDI. CVP MONITOR ATTACHED. LEVOPHED INFUSING @ 8 MCG/MIN, NEOSYNEPHRINE @ 125 MCG/MIN AND VASOPRESSIN @ 0.02 UNITS/MIN. RIGHT RADIAL ARTERIAL LINE SITE WNL AND DRESSING CDI. F/C IN PLACE, DRAINING TO GRAVITY AND NO DEPENDENT LOOPS. NO URINE NOTED IN BAG. SCDS TO BLE. +1 EDEMA TO EXTREMITIES. CAP REFILL IMM. EXTREMITIES WARM, DRY AND PALE. BED IN LOWEST POSITION AND CALL LIGHT WITHIN REACH
--- NOTE | 2019-04-02 07:10 | NUR ---
A LINE BP 88/54 (68). LEVOPHED TITRATED FROM 8 MCG/MIN TO 6 MCG/MIN.
--- NOTE | 2019-04-02 07:15 | NUR ---
RSS 5. VERSED TITRATED FROM 2 MG/HR TO 1 MG/HR.
--- NOTE | 2019-04-02 07:39 | NUR ---
PT RSS 5. VERSED TITRATED FROM 1 MG/HR TO OFF AT THIS TIME. WILL CONTINUE TO MONITOR
--- NOTE | 2019-04-02 08:22 | NUR ---
DR. NUNES AT BEDSIDE UPDATES PROVIDED. LAB RESULTS REVIEWED. STATES POSSIBLE PERITONEAL VARICES BLEED. SANDOSTATIN DRIP TO BE INITIATED @ 50 MCG/HR.
--- NOTE | 2019-04-02 08:23 | NUR ---
NGT CLAMPED AT THIS TIME PER DR NUNES
--- NOTE | 2019-04-02 08:45 | NUR ---
XRAY AT BEDSIDE FOR KUB. DURING REPOSITIONING PT ABLE TO WAKE UP. RESPONDING TO VERBAL STIMULI, FOLLOWS COMMANDS. AGITATED, HIGH RR ON VENTILATOR. VERSED REINITIATED @ 1 MG/HR AND FENTANYL @ 1 MCG/KG/HR.
--- NOTE | 2019-04-02 09:15 | NUR ---
DR. CAGE, RESIDENTS, OPENSTACK DEVELOPER AND MYSELF AT BEDSIDE FOR ROUNDING. PLAN OF CARE DISCUSSED. PER DR. CAGE DISCUSS NS BOLUS AND FURTHER PRESSURE MONITORING WITH DR. LUO.
--- NOTE | 2019-04-02 09:29 | NUR ---
A LINE BP 90/64 (77) LEVOPHED TITRATED FROM 6 MCG/MIN TO 4 MCG/MIN
--- NOTE | 2019-04-02 09:55 | NUR ---
DR MCDONOUGH AT BEDSIDE TO ASSESS PATIENT. UPDATES PROVIDED BY NURSING. NEW ORDERS RECEIVED.
--- NOTE | 2019-04-02 10:02 | NUR ---
SPOKE WITH DR RODGERS REGARDING MAGNESIUM 1.3 AND ABG RESULTS. AWAITING NEW ORDERS.
--- NOTE | 2019-04-02 10:50 | NUR ---
MICHAEL BP 90/59 (73). LEVOPHED TITRATED FROM 4 MCG/MIN TO 2 MCG/MIN
--- NOTE | 2019-04-02 10:58 | NUR ---
SPOKE WITH YOLY FROM [facility] AUTHORIZATION. CLINICAL UPDATES PROVIDED. STATES THEY WILL GIVE AUTHORIZATION FOR TODAY
--- NOTE | 2019-04-02 11:10 | NUR ---
DR. RODGERS AT BEDSIDE SPEAKING WITH PT'S , CLAUS.
--- NOTE | 2019-04-02 11:17 | NUR ---
UPDATES PROVIDED TO PT'S , CLAUS AT THIS TIME, INFORMATION ON VENTILATOR WEANING PROCESS AND TITRATION OF DRIPS GIVEN. VERBALIZES UNDERSTANDING. STATES NO HISTORY OF ALCOHOL ABUSE ONLY OCCASIONAL GLASS OF WINE AT NIGHT. NO HARD ALCOHOL.
--- NOTE | 2019-04-02 11:35 | NUR ---
PT BREATH STACKING ON VENTILATOR. RR 24. GRIMACING. VERSED TITRATED FROM 1 MG/HR TO 2 MG/HR AND FENTANYL @ 1 MCG/KG/HR. RSS4
--- NOTE | 2019-04-02 12:08 | NUR ---
A LINE BP 91/57 (72). NEOSYNEPHRINE TITRATED FROM 125 MCG/MIN TO 100 MCG/MIN
--- NOTE | 2019-04-02 12:23 | NUR ---
RIGHT NGT ATTACHED TO LIS. DARK BROWN FLUID NOTED TO DRAIN.
--- NOTE | 2019-04-02 12:27 | NUR ---
PER DR. LUO. TITRATE BLOOD PRESSURE DRIPS FOLLOWED. LEVOPHED OK TO REMAIN @ 2 MCG/MIN, WILLIAM-SYNEPHRINE GOAL 75 MCG/MIN AND VASOPRESSIN GOAL OF 0.01 UNITS/HR
--- NOTE | 2019-04-02 12:50 | NUR ---
1250: 1 UNIT FFP 2 RN VERIFICATION WITH MAMADOU SEVERINO RN. 1251: FFP INITIATED @ 50 ML/HR 1305: NO S/SX OF ADVERSE REACTION. RATE INCREASED TO 250 ML/HR. 1410: 1 UNIT FFP COMPLETE. NO S/SX OF ADVERSE REACTION SEE BLOOD SHEET FOR VS. PT TOLERATED WELL
[2019-04-02 13:07] LABS: PLATELET COUNT 102 x10^3mcL (130-400); RED CELL DISTRIBUTION WIDTH 19.3 % (11.5-14.5)
--- NOTE | 2019-04-02 13:12 | NUR ---
A LINE BP 99/61 (75). NEOSYNEPHRINE TITRATED FROM 100 MCG/MIN TO 75 MCG/MIN
--- NOTE | 2019-04-02 13:20 | NUR ---
DR. CORRALES MADE AWARE OF 400 ML OUTPUT OF NGT SINCE BEING CLAMPED.
[2019-04-02 13:29] LABS: CALCIUM 6.1 mg/dL (8.5-10.1); CARBON DIOXIDE 17.8 mmol/L (21-32); CREATININE SERUM 2.7 mg/dL (0.6-1.0); POTASSIUM SERUM 5.4 mmol/L (3.5-5.1)
[2019-04-02 13:34] LABS: BAND NEUTROPHIL 32 % (0-10); MONOCYTE 10 % (0-7); SEGMENTED NEUTROPHILS 45 % (37-75)
[2019-04-02 13:35] LABS: METAMYELOCTE 1 % (0-2); rbc morphology (normal/abnorm) ABNORMAL (NORMAL)
[2019-04-02 13:36] LABS: PLATELET MORPHOLOGY PLATELETS DECREASED
--- NOTE | 2019-04-02 13:40 | NUR ---
DR. VASQUES PAGED AT THIS TIME REGARDING RECENT BMP RESULTS
--- NOTE | 2019-04-02 13:45 | NUR ---
DR. VASQUES CALLED. INFORMED OF RECENT CBC AND BMP RESULTS. AGREES WITH IVF AND LASIX DRIP. STATES INPUT ORDERS FOR 2ND UNIT OF PRBC, SECOND AMP OF CALCIUM GLUCONATE. AND REPEAT CBC/BMP AT 1700. ORDERS REPEATED AND VERIFIED. INFORMED OF ANURIA
--- NOTE | 2019-04-02 14:00 | NUR ---
NGT CLAMPED AT THIS TIME FOR PO MEDICATION ADMINISTRATION
--- NOTE | 2019-04-02 14:27 | NUR ---
PT AGITATED. BUCKING VENTILATOR. MOVING ARMS TOWARDS ETT. VERSED TITRATED FROM 2 MG/HR TO 4 MG/HR AND FENTANYL TITRATED FROM 1 MCG/KG/HR TO 1.5 MCG/KG/HR. RSS 4
--- NOTE | 2019-04-02 14:35 | NUR ---
BP 77/49 (61) NEOSYNEPHRINE TITRATED FROM 75 MCG/MIN TO 100 MCG/MIN
--- NOTE | 2019-04-02 15:16 | NUR ---
CALLED PHARMACIST, PATRICE, FOR MEDICATION ORDER VERIFICATIONS AND DELAY. STATES TPN WAS BEING PRESCRIBED. INFORMED OF CORD SPLICER REQUESTING DOSING OF CALCIUM GLUCONATE AND THAT HE IS AWARE OF ELECTROLYTE LEVELS AND TPN INITIATION
--- NOTE | 2019-04-02 15:59 | NUR ---
A LINE BP 94/58 (74). NEOSYNEPHRINE TITRATED FROM 100 MCG/MIN TO 75 MCG/MIN
--- NOTE | 2019-04-02 16:20 | NUR ---
DR. VASQUES AT BEDSIDE TO ASSESS PT. CLAUS,PT'S , AT BEDSIDE. ALL QUESTIONS ADDRESSED. POTENTIAL NEED FOR DIALYSIS DISCUSSED AND IS IN AGREEMENT IF IT IS NEEDED. NOT CURRENTLY NEEDED AT THIS TIME. UPDATES PROVIDED TO DR. VASQUES.
--- NOTE | 2019-04-02 16:27 | NUR ---
PER DR. VASQUES DO NOT ADD POTASSIUM TO PT'S TPN. CALLED PHARMACY TO RELAY REQUEST. PER PATRICE, PHARMACIST, BAG HAS ALREADY BEEN ORDERED BUT HE WILL INPUT NOTE TO MORNING PHARMACIST TO LEAVE POTASSIUM OUT. DR. VASQUES MADE AWARE, STATES WE WILL MONITOR POTASSIUM LEVELS TONIGHT AND IF THEY REMAIN ELEVATED THEN HOLD TPN.
--- NOTE | 2019-04-02 16:52 | NUR ---
A LINE BP 81/48 (60). NEOSYNEPHRINE TITRATED FROM 75 MCG/MIN TO 100 MCG/MIN
--- NOTE | 2019-04-02 17:27 | NUR ---
DR. RODGERS PAGED AT THIS TIME
--- NOTE | 2019-04-02 17:28 | NUR ---
DR. RODGERS MADE AWARE OF ALESHA DRAIN OUTPUT AND NGT OUTPUT.
[2019-04-02 17:31] LABS: CALCIUM 6.1 mg/dL (8.5-10.1); CREATININE SERUM 2.6 mg/dL (0.6-1.0); POTASSIUM SERUM 4.8 mmol/L (3.5-5.1)
[2019-04-02 17:34] LABS: PLATELET COUNT 88 x10^3mcL (130-400); RED CELL DISTRIBUTION WIDTH 17.7 % (11.5-14.5)
[2019-04-02 17:45] LABS: BAND NEUTROPHIL 20 % (0-10); BASOPHIL 0 % (0-2); MONOCYTE 10 % (0-7); PLATELET MORPHOLOGY PLATELETS DECREASED; SEGMENTED NEUTROPHILS 59 % (37-75); rbc morphology (normal/abnorm) ABNORMAL (NORMAL)
--- NOTE | 2019-04-02 17:55 | NUR ---
DR. HUERTA AT BEDSIDE. SPEAKING WITH SELMA. UPDATES PROVIDED.NO NEW ORDERS
--- NOTE | 2019-04-02 18:08 | NUR ---
NGT CLAMPED AT THIS TIME PER ORDER
--- NOTE | 2019-04-02 18:08 | NUR ---
A LINE BP 100/55 (74). NEOSYNEPHRINE TITRATED FROM 100 MCG/MIN TO 75 MCG/MIN.
--- NOTE | 2019-04-02 18:23 | NUR ---
SPOKE WITH DR FAUST VIA TELEPHONE AND REPORTED 500 ML OF LIANG RED BLOOD REMOVED FROM ALESHA DRAIN DURING THIS SHIFT. ALSO PATIENT UPDATES PROVIDED BY NURSING.
--- NOTE | 2019-04-02 19:00 | NUR ---
RECEIVED REPORT FROM LORE LE. ASSUMING ALL CARE
--- NOTE | 2019-04-02 19:15 | NUR ---
RECEIVED PT LAYING IN BED. PT IS INTUBATED AND SEDATED ON FENTANYL @ 1.5 MCG/MIN AND VERSED @ 4 MG/HR. RSS=5. PT RESPONDS TO PAINFUL STIMULI. FACIAL GRIMACING NOTED UPON PAINFUL STIMULI. PT DOES NOT FOLLOW COMMANDS/ TRACK WITH EYES. GAG REFLEX PRESENT. PUPILS WITH SLUGGISH RESPONSE TO LIGHT, 2 MM BILAT. 7.0 ETT INTACT/SECURED, 22 CM @ LL. RIJ CVC TLC IN PLACE WITH DRESSING CDI. RIGHT NARE NGT INTACT/SECURED, SUCTION REMAINS OFF AT THIS TIME. DARK RED DRAINAGE NOTED IN CANISTER. EENT FREE OF DISCHARGE. ORAL CARE PROVIDED PER VAP PROTOCOL. BREATHING IS E/U ON VENT. VENT SETTINGS: VCV AC MODE, RATE 10, FIO2 40%, VT 500, PEEP 5. LUNGS SOUND CLEAR BILAT. SYMMETRICAL CHEST EXPANSION NOTED. S1/S2 HEART SOUNDS AUSCULTATED. CHEST WALL EQUAL AND SYMMETRICAL. RIGHT RADIAL ARTERIAL LINE IN PLACE WITH DRESSING CDI. HR 90, BP 94/51 MAP 68. NEOSYNEPHRINE GTT INFUSING @ 75 MCG/MIN, LEVOPHED GTT @ 2 MCG/MIN, VASOPRESSIN GTT @ 0.02 UNITS/MIN. CVP=20. WEAK PULSES X4 EXTREMITIES. SKIN IS WARM AND DRY. + 1 PITTING EDEMA NOTED TO BUE/BLE. SANDOSTATIN INFUSING @ 50 MCG/HR, D5 1/2 NS WITH 2 AMPS OF BICARB INFUSING @ 70 ML/HR AND LASIX GTT INFUSING @ 5 MG/HR. CAP REFLL < [address]. PT IS NPO AT THIS TIME. ABD IS FIRM/ROUND. BOWEL SOUNDS ARE HYPOACTIVE X4 QUADRANTS. MID ABD INCISION S/P EXP LAP WITH ABD PAD AND BINDER CDI. LLQ ALESHA DRAIN NOTED WITH SANGUINEOUS DRAINAGE, DRESSING AND SITE WNL. COLUNGA IS INTACT/SECURED, DRAINING VIA GRAVITY WITH TEA COLORED URINE. PT ON TURN SCHED Q2H. BED IN LOW POSITION. CALL LIGHT IN REACH. WILL CONT TO MONITOR
--- NOTE | 2019-04-02 19:30 | NUR ---
PER DR. CHINO, PT TO BE TRANSFUSED WITH 2 UNITS OF PRBC'S, 2 FFP, 1 PLT, AND 1 CRYOPRECIPITATE. WILL CARRY OUT ORDER
[2019-04-02 19:43] LABS: PLATELET COUNT 102 x10^3mcL (130-400); RED CELL DISTRIBUTION WIDTH 18.3 % (11.5-14.5)
--- NOTE | 2019-04-02 19:45 | NUR ---
RSS=5. VERSED TITRATED TO 3 MG/HR. WILL CONT TO MONITOR
[2019-04-02 19:57] LABS: BAND NEUTROPHIL 9 % (0-10); BASOPHIL 0 % (0-2); METAMYELOCTE 1 % (0-2); MONOCYTE 11 % (0-7); SEGMENTED NEUTROPHILS 70 % (37-75)
[2019-04-02 20:00] LABS: rbc morphology (normal/abnorm) ABNORMAL (NORMAL)
[2019-04-02 20:01] LABS: PLATELET MORPHOLOGY PLATELETS NORMAL
--- NOTE | 2019-04-02 20:10 | NUR ---
SPOKE TO ANESTHESIOLOGIST DR. LLOYD VIA TELEPHONE. UPDATED ON PT'S STATUS. PER DR. LLOYD, PT'S COAGULOPATHIES NEED TO BE CORRECTED PRIOR TO BEING TAKEN BACK TO THE OPERATING ROOM. MADE AWARE PT WILL BE TRANSFUSED WITH 2 UNITS OF PRBC'S, 2 FFP, 1 PLT, AND [address] LLOYD, ONCE COAGULOPATIES ARE CORRECT, PT WILL BE TAKEN TO OR
--- NOTE | 2019-04-02 20:27 | NUR ---
IV INSERTED TO LFA G 20, R HAND G 22 WITH GOOD BLOOD RETURN. PRBC INFUSING TO LFA IV AT THIS TIME WITHOUT ANY INFILTRATION NOTED.
--- NOTE | 2019-04-02 22:01 | NUR ---
NGT PLACED ON LIS PER MD ORDER.
--- NOTE | 2019-04-02 22:15 | NUR ---
PRBC INFUSION COMPLETED AT THIS TIME. POST INFUSION VITALS: TEMP 99.3, HR 81, BP 95/59, RR 10, SPO2 91%. NO ADVERSE REACTION NOTED. WILL CONT TO MONITOR
--- NOTE | 2019-04-02 22:40 | NUR ---
2ND UNITS OF PRBC INITIATED AT THIS TIME. VERIFIED BY 2 RN'S. PRE-INFUSION VITALS: TEMP 98.5, HR 94, BP 105/57, RR 11, SPO2 92%. WILL CONT TO MONITOR
--- NOTE | 2019-04-02 22:42 | NUR ---
ART BP 103/57, MAP 76. VASOPRESSIN TITRATED TO 0.01 UNITS/MIN
--- NOTE | 2019-04-02 23:00 | NUR ---
SPOKE TO DR. CHINO VIA TELEPHONE. UPDATED ON PT'S CURRENT STATUS. MADE AWARE PT IS ON TPN @ 70 ML/HR AND D5 1/2NS WITH 2 AMPS OF BICARB @ 70 ML/HR. PER DR. CHINO, CONTINUE WITH CURRENT RATE ON IV FLUIDS. MADE AWARE 600 ML OF SANGUINOUS DRAINAGE FROM THE ALESHA DRAIN AND 200 ML FROM THE NGT WERE NOTED. PER DR. Torres, CONTINUE TO MONITOR AND UPDATE ONCE 2 UNIT OF PRBC IS COMPLETED.
--- NOTE | 2019-04-02 23:27 | NUR ---
RSS=5. FENTANYL TITRATED TO 1 MCG/KG/HR. WILL CONT TO MONITOR
[2019-04-03] VITALS (16 sets, daily range): BP systolic 87–118; BP diastolic 26–61
--- NOTE | 2019-04-03 | NUR ---
NGT SUCTION TURNED OFF AT THIS TIME PER ORDER
--- NOTE | 2019-04-03 00:30 | NUR ---
DR. TREJO AT BEDSIDE. UPDATED ON PT'S STATUS. MADE AWARE 700 ML OF SANGUINOUS DRAINAGE FROM THE ALESHA DRAIN WAS NOTED. PER DR. TREJO, WILL CONT TO MONITOR AND WAIT FOR CBC RESULTS POST PRBC TRANSFUSION.
--- NOTE | 2019-04-03 00:50 | NUR ---
2ND PRBC INFUSION COMPLETED. POST INFUSION VITALS: TEMP 98.5, HR 89, BP 102/57, RR12, SPO2 92%. NO ADVERSE REACTION NOTED. WILL CONT TO MONITOR
--- NOTE | 2019-04-03 01:05 | NUR ---
RSS=5. VERSED TITRATED TO 2 MG/HR. WILL CONT TO MONITOR
[2019-04-03 01:13] LABS: BASOPHIL % 0 % (0-2); PLATELET COUNT 94 x10^3mcL (130-400); RED CELL DISTRIBUTION WIDTH 16.3 % (11.5-14.5)
--- NOTE | 2019-04-03 01:24 | NUR ---
DR. CHINO MADE AWARE HGB IS 10.3 AND HCT IS 30 POST 2 UNITS OF PRBC INFUSION. PER DR. CHINO, INFUSE CRYOPRECIPITATE AND ORDER REPEAT CBC WHEN COMPLETED.
--- NOTE | 2019-04-03 01:26 | NUR ---
CALLED LAB IN REGARDS TO CRYOPRECIPITATE INFUSION. PER SILVER RECOVERY OPERATOR, WILL THAW BAG FOR 30 MIN. WILL CALL ONCE BAG IS READY.
--- NOTE | 2019-04-03 02:04 | NUR ---
CALLED LAB IN REGARDS TO STATUS OF CRYOPRECIPITATE INFUSION. PER DRILL OPERATOR PNEUMATIC, WILL BE READY IN 10 MIN
--- NOTE | 2019-04-03 02:20 | NUR ---
RSS=5. VERSED TITRATED TO 1 MG/HR. WILL CONT TO MONITOR
--- NOTE | 2019-04-03 02:27 | NUR ---
CRYOPRECIPITATE TRANSFUSION INITIATED AT THIS TIME. VERIFIED BY 2 RN'S. PRE INFUSION VITALS: TEMP 98.5, HR 91, BP 92/59, RR 14, SPO2 93%. WILL CONT TO MONITOR
--- NOTE | 2019-04-03 03:10 | NUR ---
CRYOPRECIPITATE INFUSION COMPLETED AT THIS TIME. NO ADVERSE REACTION NOTED. POST INFUSION VITALS: TEMP 98.4, HR 101, BP 98/54, RR 10, SPO2 93%. WILL CONT TO MONITOR.
--- NOTE | 2019-04-03 03:30 | NUR ---
DR. CHINO AT BEDSIDE. UPDATED ON PT'S STATUS. MADE AWARE 1200 ML OF SANGUINOUS DRAINAGE WAS NOTED FROM ALESHA DRAIN AND 250 ML FROM NGT. PER DR. CHINO, CALL HER ONCE CBC RESULTS ARE BACK TO SEE IF PT WILL BE TRANSFUSED WITH PLATELETS.
--- NOTE | 2019-04-03 03:58 | NUR ---
REGISTERED SAFETY ENGINEER AT BEDSIDE FOR CBC BLOOD DRAW
--- NOTE | 2019-04-03 04:00 | NUR ---
NGT PLACED ON LIS PER MD ORDER
--- NOTE | 2019-04-03 04:05 | NUR ---
FENTANUL TITRATED TO 0.5 MCG/KG/HR FOR RSS=5. WILL CONT TO MONITOR.
[2019-04-03 04:18] LABS: CALCIUM 6.2 mg/dL (8.5-10.1); CREATININE SERUM 2.4 mg/dL (0.6-1.0); MAGNESIUM 1.5 mg/dL (1.8-2.4); POTASSIUM SERUM 4.3 mmol/L (3.5-5.1)
[2019-04-03 04:30] LABS: BASOPHIL % 0.1 % (0-2)
--- NOTE | 2019-04-03 04:30 | NUR ---
FULL BED BATH PROVIDED WITH MYRA WIPES. GOWN AND LINEN CHANGED. ORAL AND FOELY CARE PROVIDED. HEELS OFFLOADED. SCD IN PLACE.
[2019-04-03 04:32] LABS: PLATELET COUNT 89 x10^3mcL (130-400); RED CELL DISTRIBUTION WIDTH 16.5 % (11.5-14.5)
--- NOTE | 2019-04-03 04:45 | NUR ---
PT ABLE TO FOLLOW COMMANDS. PT REACHING TOWARDS ETT. FENTANYL TITRATED TO 1 MCG/KG/HR
--- NOTE | 2019-04-03 04:48 | NUR ---
DR. CHINO MADE AWARE MOST RECENT PLT LEVEL IS 89. PER DR. FARRELL, INFUSE 1 UNIT OF PLATELETS.
--- NOTE | 2019-04-03 05:00 | NUR ---
PLATELET INFUSION INITIATED AT THIS TIME, VERIFIED BY 2 RN'S. PREINFUSION VITALS: TEMP 98.5, HR 89, BP 104/59, RR 13, SPO2 93%. WILL CONT TO MONITOR
--- NOTE | 2019-04-03 05:13 | NUR ---
VERSED TITRATED TO 2 MG/HR. PT REACHING TOWARD ETT
--- NOTE | 2019-04-03 05:35 | NUR ---
DR. RODGERS AT BEDSIDE. UPDATED ON PT'S STATUS INCLUDING ALESHA DRAIN OUTPUT OF 1300 ML, NGT OUTPUT OF 500 ML, MOST RECENT LABS, AND BLOOD TRANSFUSIONS.
--- NOTE | 2019-04-03 05:48 | NUR ---
PT NOTED WITH SHALLOW BREATHING. RT SHAVONNE AT BEDSIDE. PER SHAVONNE RT, PT IS FIGHTING THE VENT. VERSED TITRATED TO 3 MG/HR. WILL CONT TO MONITOR
--- NOTE | 2019-04-03 06:00 | NUR ---
NGT SUCTION TURNED OFF AT THIS TIME
--- NOTE | 2019-04-03 06:15 | NUR ---
SPOKE TO DR. FAUST VIA TELEPHONE. UPDATED ON PT'S STATUS. MADE AWARE PT'S ALESHA DRAIN OUTPUT WAS 1300 ML AND 500 ML FROM THE NGT. PER DR. FAUST, PT WILL BE TAKEN TO OR AT 07:30
--- NOTE | 2019-04-03 06:29 | NUR ---
DR TREJO SPOKE WITH DR FAUST REGARDING OBTAINING CONSENT FROM , DR FAUST STS NO CONSENT NEEDS TO BE OBTAINED FOR EMERGENT SURGERY, ONLY NEED TO INFORM . DR TREJO STS HE WILL HAVE THE RESIDENT INFORM REGARDING SURGERY AT THIS TIME.
--- NOTE | 2019-04-03 06:50 | NUR ---
DR. FAUST AT BEDSIDE ASSESSING THE PT. DR. FAUST UPDATED ON PT'S CURRENT STATUS.
--- NOTE | 2019-04-03 06:57 | NUR ---
DR. FAUST SPEAKING TO CLAUS, THE PT'S VIA TELEPHONE. PER DR. FAUST, PT WILL NOT BE HAVING SURGERY AT THIS TIME.
--- NOTE | 2019-04-03 07:05 | NUR ---
REPORT GIVEN TO PRINCE LE FOR CONTINUITY OF CARE. ALL QUESTIONS/CONCERNS ADDRESSED AT THIS TIME. ENDORSING ALL CARE
--- NOTE | 2019-04-03 07:17 | NUR ---
AT BEDSIDE, PER DR, CHANGE D51/2 NS RATE TO 50 ML/HR, CHANGE TPN TO 80 ML/HR, ORDER FOLLOWED AT THIS TIME.
[2019-04-03 08:44] LABS: PLATELET COUNT 145 x10^3mcL (130-400)
[2019-04-03 08:53] LABS: RED CELL DISTRIBUTION WIDTH 17.1 % (11.5-14.5)
--- NOTE | 2019-04-03 09:31 | NUR ---
rounding at this time, updates provided on patient status and consistent bright red drainage from ALESHA drain, per DR, continue q6h H/H and order blood when necessary. No new orders at this time. Will continue to monitor pt.
--- NOTE | 2019-04-03 09:39 | NUR ---
[facility] called at this time, updates provided, per meldrim patient unstable for transfer, will call tomorrow for more updates.
[2019-04-03 09:56] LABS: BAND NEUTROPHIL 21 % (0-10); BASOPHIL 0 % (0-2); MONOCYTE 3 % (0-7); SEGMENTED NEUTROPHILS 75 % (37-75)
[2019-04-03 09:57] LABS: PLATELET MORPHOLOGY PLATELETS DECREASED; rbc morphology (normal/abnorm) ABNORMAL (NORMAL)
--- NOTE | 2019-04-03 10:15 | NUR ---
paged regarding lactic acid level 2.3.
--- NOTE | 2019-04-03 10:40 | NUR ---
at bedside speaking to Reese, per DR patient needs an EGD, obtained consent for EGD at this time, witness by myself.
--- NOTE | 2019-04-03 10:54 | NUR ---
Patient map 77, titrate levophed drip to 1mcg/min, patient rss 5, titrate fentanyl drip to 0.5 mcg/kg/hr. Will continue to monitor pt.
--- NOTE | 2019-04-03 11:10 | NUR ---
DR NUNES AT BEDSIDE FOR EGD AT THIS TIME.
--- NOTE | 2019-04-03 11:11 | NUR ---
PER DR NUNES, INCREASE VERSED AT THIS TIME TO 5 MG/HR.
--- NOTE | 2019-04-03 11:14 | NUR ---
at bedside for EGD, per dr, increase fentanyl drip to 2 mcg/kg/hr for procedure only.
--- NOTE | 2019-04-03 11:30 | NUR ---
EGD DONE AT THIS TIME. PER DR NUNES, 3 BANDS WHERE PLACED, ULCER NOTED, NO BLEEDING, THE BLEEDING MAY BE IN THE STOMACH. PER DR NUNES, RECOMMENDS NGT FEEDING. NO FURTHER ORDERS AT THIS TIME. PATIENT STABLE, WILL CONTINUE TO MONITOR.
--- NOTE | 2019-04-03 11:41 | NUR ---
All drips returned to previous rate, fentanyl 0.5 mcg/kg/hr, versed 3 mg/hr, levophed 1 mcg/min.
--- NOTE | 2019-04-03 12:41 | NUR ---
DR. VASQUES AT BEDSIDE, ALL UPDATES GIVEN. PER DR. VASQUES WILL ORDER ALBUMIN. WILL AWAIT ORDERS.
--- NOTE | 2019-04-03 13:15 | NUR ---
LEVOPHED INCREASED TO 1.5 MC/MIN AT THIS TIME. PATIENTS B/P LOW.
--- NOTE | 2019-04-03 13:46 | NUR ---
paged regarding critical lactic acid of 2.1.
--- NOTE | 2019-04-03 15:17 | NUR ---
PER DR LUO, INCREASE SEDATION. FENTANYL INCREASED TO 0.75 MCG/KG/HR AND VERSED TO 4 MG/HR. WILL CONTINUE TO MONITOR.
[2019-04-03 15:39] LABS: PLATELET COUNT 137 x10^3mcL (130-400)
[2019-04-03 15:44] LABS: RED CELL DISTRIBUTION WIDTH 17.4 % (11.5-14.5)
[2019-04-03 15:51] LABS: CALCIUM 6.7 mg/dL (8.5-10.1); CARBON DIOXIDE 22.1 mmol/L (21-32); CREATININE SERUM 2.2 mg/dL (0.6-1.0); POTASSIUM SERUM 4.1 mmol/L (3.5-5.1)
[2019-04-03 15:59] LABS: BAND NEUTROPHIL 3 % (0-10); BASOPHIL 0 % (0-2); METAMYELOCTE 1 % (0-2); MONOCYTE 14 % (0-7); SEGMENTED NEUTROPHILS 73 % (37-75)
[2019-04-03 16:02] LABS: rbc morphology (normal/abnorm) ABNORMAL (NORMAL)
--- NOTE | 2019-04-03 16:12 | NUR ---
PER RT FIO2 INCREASED TO 45%.
--- NOTE | 2019-04-03 17:41 | NUR ---
MAP 77, TITRATE LEVOPHED 1 MCG/MIN.
--- NOTE | 2019-04-03 18:40 | NUR ---
called at this time, updates provided, per dr, keept tube feeding only at 20 ml/hr until the morning.
--- NOTE | 2019-04-03 19:06 | NUR ---
RECEIVED REPORT FROM MELONY LE. WILL RESUME CARE.
--- NOTE | 2019-04-03 19:12 | NUR ---
GROUP REPORT GIVEN TO REY ALEJANDRO, NATASHA LE AND REY ZAPIEN. ALL QUESTIONS ANSWERED.
--- NOTE | 2019-04-03 20:57 | NUR ---
DR AZUL AT BEDSIDE ASSESSING PT. UPDATES PROVIDED.
--- NOTE | 2019-04-03 21:00 | NUR ---
LEVOPHED GTT OFF AT THIS TIME. BP 119/56 MAP 77.
--- NOTE | 2019-04-03 21:06 | NUR ---
SPACE STUDIES FACULTY MEMBER AT BEDSIDE FOR BLOOD DRAW.
[2019-04-03 21:27] LABS: PLATELET COUNT 138 x10^3mcL (130-400)
[2019-04-03 21:52] LABS: BAND NEUTROPHIL 8 % (0-10); BASOPHIL 0 % (0-2); METAMYELOCTE 1 % (0-2); MONOCYTE 9 % (0-7); SEGMENTED NEUTROPHILS 73 % (37-75)
[2019-04-03 21:54] LABS: rbc morphology (normal/abnorm) ABNORMAL (NORMAL)
--- NOTE | 2019-04-03 22:30 | NUR ---
VASOPRESSIN IV GTT TURNED OFR. BP 116/51 MAP 74.
[2019-04-03 22:32] LABS: CALCIUM 7.1 mg/dL (8.5-10.1); CARBON DIOXIDE 22.8 mmol/L (21-32); CREATININE SERUM 2.2 mg/dL (0.6-1.0); POTASSIUM SERUM 3.9 mmol/L (3.5-5.1)
[2019-04-04] VITALS (15 sets, daily range): BP systolic 102–120; BP diastolic 48–67
--- NOTE | 2019-04-04 00:35 | NUR ---
DR. ARAIZA AT BEDSIDE ASSESSING PT. UPDATES PROVIDED. NO NEW ORDERS AT THIS TIME.
--- NOTE | 2019-04-04 01:30 | NUR ---
WILLIAM-SYNEPHRINE TITRATED FROM 75MCG/MIN TO 50MCG/MIN. BP 109/54 MAP 73.
--- NOTE | 2019-04-04 03:47 | NUR ---
WILLIAM-SYNEPHRINE TITRATED FROM 75MCG/MIN TO 50MCG/MIN. BP 109/54 MAP 73.
[2019-04-04 04:07] LABS: PLATELET COUNT 127 x10^3mcL (130-400); RED CELL DISTRIBUTION WIDTH 17.9 % (11.5-14.5)
[2019-04-04 04:18] LABS: CALCIUM 7.2 mg/dL (8.5-10.1); CARBON DIOXIDE 22.7 mmol/L (21-32); CREATININE SERUM 2.1 mg/dL (0.6-1.0); MAGNESIUM 2.1 mg/dL (1.8-2.4); PHOSPHOROUS 2.7 mg/dL (2.5-4.9)
[2019-04-04 04:19] LABS: BAND NEUTROPHIL 4 % (0-10); MONOCYTE 18 % (0-7); SEGMENTED NEUTROPHILS 70 % (37-75)
[2019-04-04 04:22] LABS: acanthocyte (spur cell) 1+; rbc morphology (normal/abnorm) ABNORMAL (NORMAL); tear drop cell (dacryocyte) 1+
[2019-04-04 04:23] LABS: PLATELET MORPHOLOGY PLATELETS DECREASED
--- NOTE | 2019-04-04 05:10 | NUR ---
DR. RODGERS AT BEDSIDE ASSESSING PT. UPDATES PROVIDED.
--- NOTE | 2019-04-04 05:30 | NUR ---
L HAND 22G IV CATHETER DISLODGED WITH CATH INTACT. RESUMED IV FLUIDS TO R WRIST IV SITE, IV WNL.
--- NOTE | 2019-04-04 07:12 | NUR ---
RECIEVED REPORT FROM NATASHA LE, WILL RESUME CARE.
--- NOTE | 2019-04-04 07:48 | NUR ---
ASSESS PT AT BEDSIDE, PROVIED VAP CARE AND REPOSITIONED PT. BED AT LOW AND CALL LIGHT WITHIN REACH.
--- NOTE | 2019-04-04 08:30 | NUR ---
IBP 81/38 MAP 51, NBP 99/52 MAP 68 HR 91 INCREASED NEOSYENPHRINE FROM 50MCG/KG/MIN TO 75MCG/KG/MIN TO ACHIEVE MAP 65.
--- NOTE | 2019-04-04 09:53 | NUR ---
PER TUBE FEED ORDER INCREASED TUBE FEEDING FROM 20ML/HR TO 30ML/HR FWF 30ML/Q6HRS. PT TOLERATING WELL.
--- NOTE | 2019-04-04 09:55 | NUR ---
SPOKE WITH CASE MANAGEMENT FROM [facility] AND PROVIDED PATIENT UPDATE. SHE WILL CALL BACK IF SHE IS ABLE TO FIND ACCEPTING MD.
--- NOTE | 2019-04-04 11:40 | NUR ---
TELEPHONED [facility] TO FOLLOW UP REGARDING PATIENT TX. PER SIRENA AT TRANSFER CENTER, SHE IS WAITING TO CONFIRM AUTHORIZATION NUMBER FROM [employer] SHE HAD "LEFT SEVERAL MESSAGES." PROVIDED SIRENA WITH AUTH. NUMBER FROM [employer] AND TELEPHONE NUMBER FROM CASE MANAGEMENT NOTES. AWAITING FURTHER INSTRUCTIONS AT THIS TIME.
--- NOTE | 2019-04-04 12:56 | NUR ---
TELEPHONED [employer] TO CLARIFY AUTHORIZATION# NEED FOR TRANSFER TO [facility]. PER MAL[place], NO AUTHORIZATION NUMBER NEEDED FOR TRANSFER. WE MAY TRANSFER A USUAL TRANSFER (WITHOUT AUTH # SINCE PATIENT NEEDS HIGHER LEVEL OF CARE) ONCE BED BECOMES AVAILABLE.
--- NOTE | 2019-04-04 13:07 | NUR ---
SPO[place] [facility] [place] AUTHORIZATION IS NOT NEEDED FOR [place] [facility] [place]INCE IT IS A HIGHR LEVEL OF CARE. PER SIRENA, THEY ARE UNABLE TO ACCEPT PATIENT UNTIL THEY ARE PROVIDED A "LETTER OF AGREEMENT" FROM [place] TO [facility] RENDER[place] AT [facility] [place] BE [place]. PAGED DR RODGERS TO INFORM.
--- NOTE | 2019-04-04 13:19 | NUR ---
IBP 121/54 MAP 74 HR 100 LOWERED NEOSYNEPHRINE FROM 75MCG/KG/MIN TO 50MCG/KG/MIN TO ACHIEVE MAP 65.
--- NOTE | 2019-04-04 15:05 | NUR ---
SPOKE WITH SIRENA FROM [facility]. [facility] [facility] WILLING TO ACCEPT PATIENT EMERGENT TRANSFER. ACCEPTING MD IS DR BARLOW. [facility] WILL CALL ONCE BED IS ASSIGNED.
--- NOTE | 2019-04-04 15:30 | NUR ---
RECEIVED TELEPHONE CALL FROM JAYLIN AT [facility]. PATIENT TO BE TRANSFERRED TO ROOM 7422 WITH ACCEPTING: DR BARLOW. REPORT TO BE CALLED TO PRIOR TO TRANSFER.
[2019-04-04] MEDS ORDERED: ZOS3PM IV (15:50)
[2019-04-04] MEDS ORDERED: VANCO 1 GR1 GM/150 M IV (15:51)
--- NOTE | 2019-04-04 15:56 | NUR ---
SPOKE WITH [facility] AND PROVIDED PATIENT INFORMATION. EARLIEST TIME PATIENT TO BE PICKED UP IS [id number].
--- NOTE | 2019-04-04 16:36 | NUR ---
D/C ART LINE TO R RADIAL, SUROGEL AND GAUZE DRESSING APPLIED. PRESSURE APPLIED TO SITE FOR 5MINS. CENTRAL LINE DRESSING CHANGED WITH PROPER TECHNIQUES. NO SIGNS OF REDNESS TO RIJ CVC. CVP D/C.
--- NOTE | 2019-04-04 17:00 | NUR ---
DR. Banda AT BEDSIDE CHANGED ABD DRESSING AND DRESSING TO L J/P DRAIN. PICTURE TAKEN AND FILE IN CHART. NO SIGNS OF REDNESS TO LIZZIE AND SUTURES.
--- NOTE | 2019-04-04 19:16 | NUR ---
[facility] AT BEDSIDE NOTING DOSAGES OF MEDICATIONS AND DRIPS FOR TRANSPORT.
--- NOTE | 2019-04-04 19:29 | NUR ---
REPORT GIVEN TO NIRALI LE FROM [facility] [place]. PER NIRALI PT WILL BE TRANSFERRING TO ROOM 7421 MADE AWARE TO [facility].
== END 2019-04-04 19:30 | disposition short-term general hospital (02) | DRG 853 ==
LOC: ED 17:56 → IC 21:06
PROVIDERS: Anesthesiology; Emergency Medicine; Internal Medicine Nephrology; Surgery; ADMIT Internal Medicine
PROC: 0DNW0ZZ Release Peritoneum, Open Approach (ICD-10-PCS; 2019-04-01)
PROC: 02HV33Z Insertion of Infusion Device into Superior Vena Cava, Percutaneous Approach (ICD-10-PCS; 2019-04-01)
PROC: B548ZZA Ultrasonography of Superior Vena Cava, Guidance (ICD-10-PCS; 2019-04-01)
PROC: 5A1945Z Respiratory Ventilation, 24-96 Consecutive Hours (ICD-10-PCS; 2019-04-01)
PROC: 0BH17EZ Insertion of Endotracheal Airway into Trachea, Via Natural or Artificial Opening (ICD-10-PCS; 2019-04-01)
PROC: 30233K1 Transfusion of Nonautologous Frozen Plasma into Peripheral Vein, Percutaneous Approach (ICD-10-PCS; 2019-04-01)
PROC: 30233N1 Transfusion of Nonautologous Red Blood Cells into Peripheral Vein, Percutaneous Approach (ICD-10-PCS; 2019-04-01)
PROC: 30233R1 Transfusion of Nonautologous Platelets into Peripheral Vein, Percutaneous Approach (ICD-10-PCS; 2019-04-01)
PROC: 07TP0ZZ Resection of Spleen, Open Approach (ICD-10-PCS; principal; 2019-04-01 17:00)
PROC: 06L38CZ Occlusion of Esophageal Vein with Extraluminal Device, Via Natural or Artificial Opening Endoscopic (ICD-10-PCS; 2019-04-03)
PROC: 30233M1 Transfusion of Nonautologous Plasma Cryoprecipitate into Peripheral Vein, Percutaneous Approach (ICD-10-PCS; 2019-04-03)
DX: A41.9 Sepsis, unspecified organism (principal); R65.21 Severe sepsis with septic shock; E43 Unspecified severe protein-calorie malnutrition; K66.1 Hemoperitoneum; D65 Disseminated intravascular coagulation [defibrination syndrome]; N17.0 Acute kidney failure with tubular necrosis; K25.4 Chronic or unspecified gastric ulcer with hemorrhage; J96.00 Acute respiratory failure, unspecified whether with hypoxia or hypercapnia; K76.6 Portal hypertension; R18.8 Other ascites; D62 Acute posthemorrhagic anemia; D68.9 Coagulation defect, unspecified; I85.00 Esophageal varices without bleeding; I11.0 Hypertensive heart disease with heart failure; I50.9 Heart failure, unspecified; E87.5 Hyperkalemia; E83.42 Hypomagnesemia; E66.9 Obesity, unspecified; K80.20 Calculus of gallbladder without cholecystitis without obstruction; E83.51 Hypocalcemia; R73.9 Hyperglycemia, unspecified; K74.60 Unspecified cirrhosis of liver; Z98.51 Tubal ligation status; Z82.49 Family history of ischemic heart disease and other diseases of the circulatory system; Z68.32 Body mass index [BMI] 32.0-32.9, adult
CPT/HCPCS: 36556; 43235; 82962; 83880; 85378; 88344; 90732; A4628; C9113; G0378; J0171; J0330; J0610; J0696; J1170; J1200; J1610; J1720; J1815; J1940; J2060; J2250; J2310; J2354; J2370; J2543; J2765; J3010; J3370; J3430; J3475; J3490; J7030; J7040; J7050; J7060; J7120; J7131; J8597; P9012; P9016; P9035; P9045; P9047; P9059; Q0092; Q0163